=== PATIENT | male | born 1970 | race Caucasian/White ===

== ENCOUNTER 2016-11-01 06:28 | Emergency (ER) | payer OTHER ==
[2016-11-01 06:58] LABS: BASO % 0.4 % (0.2-1.2); EOS # 0.2 10_X3_uL (0.0-0.5); EOS % 4.5 % (0.8-7.0); GRAN # 2.4 10_X3_uL (1.8-5.4); GRAN % 44.7 % (34.0-67.9); HEMATOCRIT 48.6 % (40-51); HEMOGLOBIN 15.9 g/dL (13.7-17.5); LYMPH % 37.4 % (21.8-53.1); MEAN CORPUSCULAR HEMOGLOBIN 30.6 pg (27.0-33.0); MEAN CORPUSCULAR HGB CONC 32.7 g/dL (32.0-36.0); MEAN CORPUSCULAR VOLUME 93.5 fL (79-92); MEAN PLATELET VOLUME 9.6 fl (7.5-11.5); MONO # 0.7 10_X3_uL (0.3-0.8); PLATELET COUNT 257 x10_3/uL (163-337); RED CELL DISTRIBUTION WIDTH 13.4 % (11.6-14.4); WHITE BLOOD COUNT 5.3 x10_3/uL (4.2-9.1)
[2016-11-01 07:04] LABS: ALBUMIN 4.4 gm/dL (3.4-5.0); ALKALINE PHOSPHATASE 78 U/L (50-136); ALT/SGPT 30 U/L (7.53-40.17); AST/SGOT 22 U/L (6.66-35.34); BILIRUBIN,TOTAL 0.21 mg/dL (0.0-1.0); BLOOD UREA NITROGEN 15 mg/dL (7-18); CALCIUM 9.2 mg/dL (8.7-10.7); CARBON DIOXIDE 28 mmol/L (21-32); POTASSIUM 3.4 mmol/L (3.5-5.1); SODIUM 144 mmol/L (136-145); TOTAL PROTEIN 7.2 gm/dL (6.4-8.2)
[2016-11-01 07:15] LABS: GLUCOSE,RANDOM 45 mg/dL (70-99)
== END 2016-11-01 09:15 | disposition home or self-care (01) ==
LOC: ER 06:28
PROVIDERS: Emergency Medicine
DX: E16.2 Hypoglycemia, unspecified (principal); E11.9 Type 2 diabetes mellitus without complications; Z79.84 Long term (current) use of oral hypoglycemic drugs; Z88.0 Allergy status to penicillin; Z88.1 Allergy status to other antibiotic agents
CPT/HCPCS: 36415; 80053; 82962; 85025; 96365; 96366; 96376; 99070; 99284-25